=== PATIENT | female | born 1960 | race Caucasian/White ===

== ENCOUNTER 2018-03-19 22:27 | Emergency (ER) | payer OTHER ==
[~2018-03-19] VITALS: Ht 152.4 cm; Wt 63.0 kg
[2018-03-19 22:27] VITALS: BP 131/68; PULSE 95; RESP 18; TEMP 97.9; O2SAT 97
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
[2018-03-19 23:30] VITALS: BP 124/61; PULSE 96; RESP 16; O2SAT 96
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
[2018-03-19] MEDS ORDERED: IBUPROFEN 600 MG TAB PO ONE (23:45)
[2018-03-19] MEDS ORDERED: CYCLOBENZAPRINE HCL 10 MG TAB PO ONE (23:45)
[2018-03-19] MEDS ORDERED: IBUP-232 PO (23:46)
[2018-03-19] MEDS ORDERED: CYCL10TA PO (23:46)
[2018-03-20 00:13] VITALS: BP 137/86
== END 2018-03-20 00:22 | disposition home or self-care (01) ==
LOC: PHED 22:27
DX: S16.1XXA Strain of muscle, fascia and tendon at neck level, initial encounter (principal); S40.012A Contusion of left shoulder, initial encounter; R22.2 Localized swelling, mass and lump, trunk; V43.52XA Car driver injured in collision with other type car in traffic accident, initial encounter
CPT/HCPCS: 71045; 72050; 73030; 99284